=== PATIENT | female | born 1985 | race Caucasian/White ===

== ENCOUNTER → 2017-09-05 | Outpatient (CLI) | payer OTHER ==
--- NOTE | 2017-09-06 16:47 | RADIOLOGY REPORT (SQ) ---
EXAM DESCRIPTION: MRI RT LOWER EXTREMITY COMBO COMPLETED DATE/TIME: 09/05/2017 3:41 pm REASON FOR STUDY: PAIN IN RIGHT FOOT M79.671 PAIN IN RIGHT FOOT COMPARISON: None. TECHNIQUE: T1-weighted, T2-weighted, and gradient echo noncontrast multiplanar imaging of the right mid and forefoot. LIMITATIONS: None. FINDINGS: MARROW SIGNAL: Along the plantar base, 5th toe proximal phalanx, an 8 mm by 5 mm fluid-anny led lytic lesion is present with a thin rim of peripheral contrast enhancement. There appears to be cortical breakthrough along the plantar base of the 5th toe proximal phalanx on sagittal image 3. Th is may represent a small giant cell tumor. A subcortical cyst related to arthritis is possible. A s mall chondroid tumor is possible but considered less likely. Remainder of the bones of the forefoot are otherwise unremarkable. JOINT EFFUSION: No significant effusions. PLANTAR FASCIA: Normal as visualized. TARSOMETATARSAL AND TOE ARTICULATIONS: Anatomic. Mild degenerative changes first metatarsal phalange al joint. INTERMETATARSAL SPACES AND PLANTAR PLATES: Intact. No soft tissue mass to suggest a neuroma. SOFT TISSUES: No masses. No fibrosis. OTHER: No other significant finding. IMPRESSION: 5th toe proximal phalanx 8 x 5 mm fluid-filled lytic lesion with thin rim of peripheral enhancement. Cortical breakthrough along the plantar surface of the proximal phalanx. 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 Subcortical cyst related to osteoarthritis or chondroid lesion are also possible. TECHNICAL DOCUMENTATION: JOB ID: [id number] [employer]- All Rights Reserved
== END ==
LOC: RAD 14:11
PROVIDERS: ATTEND Orthopaedic Surgery
DX: M79.671 Pain in right foot (principal)
CPT/HCPCS: 73720; A9576